=== PATIENT | female | born 1965 | race Caucasian/White ===

== ENCOUNTER 2018-01-29 11:36 | Inpatient (IN) | payer MEDICAID, OTHER ==
[~2018-01-29] VITALS: Ht 157.5 cm; Wt 75.4 kg
[2018-01-29] MEDS ORDERED: ADV100 IH (13:36)
[2018-01-29] MEDS ORDERED: VENL-193 PO (13:36)
[2018-01-29] MEDS ORDERED: ADDE10 PO (13:36)
[2018-01-29] MEDS ORDERED: ALBU8.5H8 IH (13:36)
[2018-01-29] MEDS ORDERED: VENL-68 PO (13:38)
[2018-01-29 13:50] LABS: EOSINOPHILS % (AUTO) 1.4 % (1.0-6.0); HEMATOCRIT 44.5 % (36-46); HEMOGLOBIN 15.2 g/dL (12.0-16.0); LYMPHOCYTES # (AUTO) 2.2 K/uL (1.0-4.8); LYMPHOCYTES % (AUTO) 22.4 % (22.0-44.0); MEAN CORPUSCULAR HEMOGLOBIN 30.1 pg (26.0-34.0); MEAN CORPUSCULAR HGB CONC 34.2 G/dL (31.0-37.0); MEAN CORPUSCULAR VOLUME 88 fL (80-100); MONOCYTES # (AUTO) 0.7 K/uL (0.1-1.0); MONOCYTES % (AUTO) 7.5 % (2.0-9.0); NEUTROPHILS # (AUTO) 6.7 K/uL (1.8-7.7); NEUTROPHILS % (AUTO) 67.7 % (40.0-70.0); PLATELET COUNT (AUTO) 358 K/uL (150-450); RED BLOOD CELL COUNT(AUTO) 5.07 MIL/uL (4.00-5.20); RED CELL DISTRIBUTION WIDTH 13.1 % (11.5-14.5)
[2018-01-29 14:02] LABS: ANION GAP 14 mmol/L (8-16); CALCIUM, TOTAL 9.5 mg/dL (8.8-10.5); CARBON DIOXIDE 24 mmol/L (22-29); CHLORIDE 103 mmol/L (98-107); CREATININE 0.62 mg/dL (0.60-1.30); GLOMERULAR FILTR. RATE CALC > 60 mL/min (>60); GLUCOSE,RANDOM 101 mg/dL (70-110); POTASSIUM 3.7 mmol/L (3.5-5.1); SODIUM SERUM 141 mmol/L (136-145); UREA NITROGEN, BLOOD 10 mg/dL (7-18)
[2018-01-29 14:07] LABS: ALANINE AMINOTRANSFERASE 57 U/L (12-78); ALBUMIN 3.9 g/dL (3.4-5.0); ALKALINE PHOSPHATASE 125 U/L (46-116); ASPARTATE AMINOTRANSFERASE 33 U/L (15-37); BILIRUBIN,TOTAL 0.8 mg/dL (0.1-1.0); TOTAL PROTEIN, SERUM 7.5 g/dL (6.4-8.2)
[2018-01-29] MEDS ORDERED: HALOPERIDOL 5 MG TABLET PO PRN (15:00)
[2018-01-29] MEDS ORDERED: ZOLPIDEM TARTRATE 10 MG TABLET PO PRN (15:00)
[2018-01-29 15:36] LABS: AMPHET/METH SCREEN,URINE POSITIVE (NEGATIVE); BARBITURATE SCREEN, URINE NEGATIVE (NEGATIVE); BENZODIAZEPINES SCREEN,URINE NEGATIVE (NEGATIVE); CANNABINOID SCREEN,URINE POSITIVE (NEGATIVE); COCAINE SCREEN,URINE NEGATIVE (NEGATIVE); METHADONE SCREEN, URINE NEGATIVE (NEGATIVE); OPIATE SCREEN,URINE NEGATIVE (NEGATIVE)
[2018-01-29 15:37] LABS: PHENCYCLIDINE SCREEN,URINE NEGATIVE (NEGATIVE)
[2018-01-29 18:58] VITALS: BP 151/75
[2018-01-29] MEDS ORDERED: CloNIDine HCL 0.1 MG TABLET PO PRN (20:45)
[2018-01-29] MEDS ORDERED: NICOTINE 14 MG/24 HOUR PATCH TD PRN (20:45)
[2018-01-29] MEDS ORDERED: IBUPROFEN 400 MG TABLET PO PRN (20:45)
[2018-01-29] MEDS ORDERED: MAGNESIUM HYDROXIDE SUSPENSION 30 ML UDCUP PO PRN (20:45)
[2018-01-29] MEDS ORDERED: ONDANSETRON HCL 4 MG TABLET PO PRN (20:45)
[2018-01-29] MEDS ORDERED: ACETAMINOPHEN 325 MG TABLET PO PRN (20:45)
[2018-01-29] MEDS ORDERED: LOPERAMIDE HCL 2 MG CAPSULE PO PRN (20:45)
[2018-01-29] MEDS ORDERED: GuaiFENesin/D-METHORPHAN [SUGAR-FREE] 200-20MG/10 ML SYRUP UDCUP PO PRN (20:45)
[2018-01-29] MEDS ORDERED: PETROLATUM,WHITE 71 GM JELLY TP PRN (20:45)
[2018-01-29] MEDS ORDERED: DOCUSATE SODIUM 100 MG CAPSULE PO PRN (20:45)
[2018-01-29] MEDS ORDERED: MAG HYDROX/AL HYDROX/SIMETH ES 30 ML SUSPENSION UDCUP PO PRN (20:45)
[2018-01-29] MEDS ORDERED: ALBUTEROL SULFATE HFA 90 MCG/PUFF 8 GM INHALER IH PRN (20:45)
[2018-01-30 09:57] VITALS: BP 140/86
[2018-01-30 10:40] VITALS: BP 140/86
[2018-01-30] MEDS: FLUTICASONE/VILANTEROL 100-25 MCG/INH INHALER [14] IH SCH (10:43)
[2018-01-30] MEDS: SUMAtriptan SUCCINATE 25 MG TABLET PO PRN (10:43)
[2018-01-30] MEDS: VENLAFAXINE HCL 150 MG ER CAPSULE PO SCH (13:51)
[2018-01-31 00:02] VITALS: BP 132/80
[2018-01-31] MEDS: VENLAFAXINE HCL 150 MG ER CAPSULE PO SCH (08:17)
[2018-01-31] MEDS: FLUTICASONE/VILANTEROL 100-25 MCG/INH INHALER [14] IH SCH (08:17)
[2018-01-31 10:45] VITALS: BP 126/78
[2018-01-31] MEDS: SUMAtriptan SUCCINATE 25 MG TABLET PO PRN (16:24)
[2018-01-31 19:55] VITALS: BP 140/94
[2018-02-01 07:37] LABS: ALANINE AMINOTRANSFERASE 47 U/L (12-78); ALBUMIN 3.5 g/dL (3.4-5.0); ALKALINE PHOSPHATASE 115 U/L (46-116); ANION GAP 5 mmol/L (8-16); ASPARTATE AMINOTRANSFERASE 20 U/L (15-37); BILIRUBIN,TOTAL 0.2 mg/dL (0.1-1.0); CALCIUM, TOTAL 8.6 mg/dL (8.8-10.5); CARBON DIOXIDE 32 mmol/L (22-29); CHLORIDE 107 mmol/L (98-107); CHOL/HDL RATIO 3.7 (3.9-5.7); CHOLESTEROL 164 mg/dL (131-200); CREATININE 0.66 mg/dL (0.60-1.30); FREE T4 (FREE THYROXINE) 0.72 ng/dL (0.76-1.46); GLOMERULAR FILTR. RATE CALC > 60 mL/min (>60); GLUCOSE,RANDOM 81 mg/dL (70-110); HDL CHOLESTEROL 44 mg/dL (40-60); LDL CHOL (CALC.) 100 mg/dL (0-130); POTASSIUM 4.6 mmol/L (3.5-5.1); SODIUM SERUM 144 mmol/L (136-145); TOTAL PROTEIN, SERUM 6.6 g/dL (6.4-8.2); TRIGLYCERIDES 101 mg/dL (15-150); UREA NITROGEN, BLOOD 11 mg/dL (7-18)
[2018-02-01 08:36] VITALS: BP 125/83
[2018-02-01] MEDS ORDERED: ARIPiprazole 5 MG TABLET PO SCH (09:00)
[2018-02-01] MEDS: FLUTICASONE/VILANTEROL 100-25 MCG/INH INHALER [14] IH SCH (09:28)
[2018-02-01] MEDS: VENLAFAXINE HCL 150 MG ER CAPSULE PO SCH (09:28)
[2018-02-01 09:33] VITALS: BP 125/83
[2018-02-01] MEDS: SUMAtriptan SUCCINATE 25 MG TABLET PO PRN (09:36)
[2018-02-01] MEDS: LORazepam 2 MG TABLET PO PRN (18:05)
[2018-02-01 19:11] VITALS: BP 132/89
[2018-02-02] MEDS ORDERED: ARIPiprazole 10 MG TABLET PO SCH (09:00)
[2018-02-02] MEDS: VENLAFAXINE HCL 150 MG ER CAPSULE PO SCH (09:43)
[2018-02-02] MEDS: FLUTICASONE/VILANTEROL 100-25 MCG/INH INHALER [14] IH SCH (09:43)
[2018-02-02 09:48] VITALS: BP 127/84
[2018-02-02] MEDS: LORazepam 2 MG TABLET PO PRN (16:35)
[2018-02-02 17:00] VITALS: BP 127/75
[2018-02-03 08:05] VITALS: BP 126/78
[2018-02-03] MEDS: ARIPiprazole 10 MG TABLET PO SCH (09:34)
[2018-02-03] MEDS: FLUTICASONE/VILANTEROL 100-25 MCG/INH INHALER [14] IH SCH (09:34)
[2018-02-03] MEDS: VENLAFAXINE HCL 150 MG ER CAPSULE PO SCH (09:34)
[2018-02-03 16:00] VITALS: BP 106/68
[2018-02-03] MEDS: LORazepam 2 MG TABLET PO PRN (20:12)
[2018-02-04 08:21] VITALS: BP 118/79
[2018-02-04] MEDS: FLUTICASONE/VILANTEROL 100-25 MCG/INH INHALER [14] IH SCH (09:17)
[2018-02-04] MEDS: VENLAFAXINE HCL 150 MG ER CAPSULE PO SCH (09:17)
[2018-02-04] MEDS: ARIPiprazole 10 MG TABLET PO SCH (09:18)
[2018-02-04 20:10] VITALS: BP 121/82
[2018-02-05] MEDS: VENLAFAXINE HCL 150 MG ER CAPSULE PO SCH (09:03)
[2018-02-05] MEDS: ARIPiprazole 10 MG TABLET PO SCH (09:03)
[2018-02-05] MEDS: FLUTICASONE/VILANTEROL 100-25 MCG/INH INHALER [14] IH SCH (09:03)
[2018-02-05 09:20] VITALS: BP 122/74
[2018-02-05] MEDS ORDERED: ARIP10TA8 PO (11:55)
== END 2018-02-05 13:15 | disposition home or self-care (01) | DRG 753 ==
LOC: EDUNIT# 11:36 → EMS 11:37 → 3EI 16:31
PROVIDERS: ADMIT Psychiatry & Neurology Psychiatry; ATTEND Psychiatry & Neurology Psychiatry
DX: F31.60 Bipolar disorder, current episode mixed, unspecified (principal); R45.851 Suicidal ideations; F12.90 Cannabis use, unspecified, uncomplicated; F41.9 Anxiety disorder, unspecified; F90.9 Attention-deficit hyperactivity disorder, unspecified type; J45.909 Unspecified asthma, uncomplicated; Z91.5 Personal history of self-harm; F19.10 Other psychoactive substance abuse, uncomplicated; Z71.51 Drug abuse counseling and surveillance of drug abuser
CPT/HCPCS: 84439; 84443; G0480

== ENCOUNTER 2018-10-18 10:52 | Inpatient (IN) | payer MEDICAID ==
[~2018-10-18] VITALS: Ht 157.5 cm; Wt 70.8 kg
[~2018-10-18 10:52] MED LIST: ADV100 IH; ARIP10TA8 PO; VENL-68 PO
[2018-10-18 11:32] LABS: BASOPHILS % (AUTO) 0.7 % (0.0-2.0); EOSINOPHILS % (AUTO) 3.4 % (1.0-6.0); HEMATOCRIT 44.6 % (36-46); HEMOGLOBIN 14.4 g/dL (12.0-16.0); LYMPHOCYTES # (AUTO) 3.5 K/uL (1.0-4.8); LYMPHOCYTES % (AUTO) 30.4 % (22.0-44.0); MEAN CORPUSCULAR HEMOGLOBIN 29.8 pg (26.0-34.0); MEAN CORPUSCULAR HGB CONC 32.4 G/dL (31.0-37.0); MEAN CORPUSCULAR VOLUME 92 fL (80-100); NEUTROPHILS # (AUTO) 6.5 K/uL (1.8-7.7); NEUTROPHILS % (AUTO) 56.5 % (40.0-70.0); RED BLOOD CELL COUNT(AUTO) 4.85 MIL/uL (4.00-5.20); RED CELL DISTRIBUTION WIDTH 13.5 % (11.5-14.5)
[2018-10-18 11:33] LABS: ANION GAP 9 mmol/L (8-16); CARBON DIOXIDE 24 mmol/L (22-29); CHLORIDE 108 mmol/L (98-107); CREATININE 0.63 mg/dL (0.60-1.30); GLOMERULAR FILTR. RATE CALC > 60 mL/min (>60); GLUCOSE,RANDOM 118 mg/dL (70-110); SODIUM SERUM 141 mmol/L (136-145); UREA NITROGEN, BLOOD 10 mg/dL (7-18)
[2018-10-18 11:39] LABS: ALANINE AMINOTRANSFERASE 22 U/L (12-78); ALBUMIN 3.9 g/dL (3.4-5.0); ALKALINE PHOSPHATASE 92 U/L (46-116); ASPARTATE AMINOTRANSFERASE 23 U/L (15-37); BILIRUBIN,TOTAL 0.5 mg/dL (0.1-1.0); TOTAL PROTEIN, SERUM 6.7 g/dL (6.4-8.2)
[2018-10-18 11:54] LABS: PLATELET COUNT (AUTO) 370 K/uL (150-450)
[2018-10-18] MEDS ORDERED: HALOPERIDOL 5 MG TABLET PO PRN (12:45)
[2018-10-18] MEDS ORDERED: LORazepam 2 MG TABLET PO PRN (12:45)
[2018-10-18] MEDS ORDERED: ZOLPIDEM TARTRATE 10 MG TABLET PO PRN (12:45)
[2018-10-18 18:37] VITALS: BP 154/108
[2018-10-18] MEDS ORDERED: DOCUSATE SODIUM 100 MG CAPSULE PO PRN (18:45)
[2018-10-18] MEDS ORDERED: PETROLATUM,WHITE 28 GM JELLY TP PRN (18:45)
[2018-10-18] MEDS ORDERED: LOPERAMIDE HCL 2 MG CAPSULE PO PRN (18:45)
[2018-10-18] MEDS ORDERED: MAG HYDROX/AL HYDROX/SIMETH ES 30 ML SUSPENSION UDCUP PO PRN (18:45)
[2018-10-18] MEDS ORDERED: GuaiFENesin/D-METHORPHAN [SUGAR-FREE] 200-20MG/10 ML SYRUP UDCUP PO PRN (18:45)
[2018-10-18] MEDS ORDERED: CloNIDine HCL 0.1 MG TABLET PO PRN (18:45)
[2018-10-18] MEDS ORDERED: NICOTINE 14 MG/24 HOUR PATCH TD PRN (18:45)
[2018-10-18] MEDS ORDERED: ONDANSETRON HCL 4 MG TABLET PO PRN (18:45)
[2018-10-18] MEDS ORDERED: IBUPROFEN 400 MG TABLET PO PRN (18:45)
[2018-10-18] MEDS ORDERED: MAGNESIUM HYDROXIDE SUSPENSION 30 ML UDCUP PO PRN (18:45)
[2018-10-18] MEDS ORDERED: ALBUTEROL SULFATE HFA 90 MCG/PUFF 8 GM INHALER IH PRN (18:45)
[2018-10-18] MEDS ORDERED: ACETAMINOPHEN 325 MG TABLET PO PRN (18:45)
[2018-10-18] MEDS: AmLODIPine BESYLATE 5 MG TABLET PO SCH (18:55)
[2018-10-18 19:55] VITALS: BP 102/60
[2018-10-19 08:19] VITALS: BP 121/69
[2018-10-19] MEDS: FLUTICASONE/VILANTEROL 100-25 MCG/INH INHALER [14] IH SCH (08:34)
[2018-10-19] MEDS: AmLODIPine BESYLATE 5 MG TABLET PO SCH (08:34)
[2018-10-19 09:24] LABS: CHOL/HDL RATIO 3.6 (3.9-5.7); THYROID STIMULATING HORMONE 1.77 uIU/mL (0.36-3.74)
[2018-10-19] MEDS: VENLAFAXINE HCL 150 MG ER CAPSULE PO SCH (12:08)
[2018-10-19] MEDS: ARIPiprazole 10 MG TABLET PO SCH (12:08)
[2018-10-19 16:02] VITALS: BP 100/54
[2018-10-20 08:33] VITALS: BP 129/86
[2018-10-20] MEDS: FLUTICASONE/VILANTEROL 100-25 MCG/INH INHALER [14] IH SCH (08:52)
[2018-10-20] MEDS: AmLODIPine BESYLATE 5 MG TABLET PO SCH (08:53)
[2018-10-20] MEDS: VENLAFAXINE HCL 150 MG ER CAPSULE PO SCH (08:53)
[2018-10-20] MEDS: ARIPiprazole 10 MG TABLET PO SCH (08:53)
[2018-10-20 16:07] VITALS: BP 119/76
[2018-10-21 08:11] LABS: APPEARANCE,URINE CLOUDY (CLEAR); BILIRUBIN,URINE NEGATIVE (NEGATIVE); GLUCOSE, URINE (UA) NEGATIVE (NEGATIVE); KETONES,URINE NEGATIVE (NEGATIVE); LEUKOCYTE ESTERASE ,URINE LARGE (NEGATIVE); NITRATE,URINE NEGATIVE (NEGATIVE); OCCULT BLOOD,URINE TRACE (NEGATIVE); PH,URINE 6.5 (5.0-8.0); PROTEIN,URINE NEGATIVE (NEGATIVE); UROBILINOGEN,URINE 0.2 mg/dL (<=1.0)
[2018-10-21 08:23] VITALS: BP 121/60
[2018-10-21 08:43] LABS: BACTERIA,URINE Few /HPF (None Seen); RBC,URINE 0-2 /HPF (0-2); SQUAMOUS EPITHELIAL CELL,UR Moderate /LPF (None Seen)
[2018-10-21 08:51] LABS: AMPHET/METH SCREEN,URINE POSITIVE (NEGATIVE); BARBITURATE SCREEN, URINE NEGATIVE (NEGATIVE); BENZODIAZEPINES SCREEN,URINE NEGATIVE (NEGATIVE); CANNABINOID SCREEN,URINE POSITIVE (NEGATIVE); COCAINE SCREEN,URINE NEGATIVE (NEGATIVE); METHADONE SCREEN, URINE NEGATIVE (NEGATIVE); OPIATE SCREEN,URINE NEGATIVE (NEGATIVE)
[2018-10-21 08:54] LABS: PHENCYCLIDINE SCREEN,URINE NEGATIVE (NEGATIVE)
[2018-10-21] MEDS: AmLODIPine BESYLATE 5 MG TABLET PO SCH (10:00)
[2018-10-21] MEDS: VENLAFAXINE HCL 150 MG ER CAPSULE PO SCH (10:00)
[2018-10-21] MEDS: ARIPiprazole 10 MG TABLET PO SCH (10:00)
[2018-10-21] MEDS: FLUTICASONE/VILANTEROL 100-25 MCG/INH INHALER [14] IH SCH (10:01)
[2018-10-21 16:07] VITALS: BP 119/77
[2018-10-22 05:42] VITALS: BP 110/68
[2018-10-22 08:16] VITALS: BP 105/53
[2018-10-22 08:50] VITALS: BP 127/94
[2018-10-22] MEDS: ARIPiprazole 10 MG TABLET PO SCH (08:51)
[2018-10-22] MEDS: FLUTICASONE/VILANTEROL 100-25 MCG/INH INHALER [14] IH SCH (08:51)
[2018-10-22] MEDS: VENLAFAXINE HCL 150 MG ER CAPSULE PO SCH (08:51)
[2018-10-22] MEDS: AmLODIPine BESYLATE 5 MG TABLET PO SCH (08:55)
[2018-10-22 16:14] VITALS: BP 126/70
[2018-10-23 07:08] VITALS: BP 118/62
[2018-10-23 08:23] VITALS: BP 124/74
[2018-10-23] MEDS: ARIPiprazole 10 MG TABLET PO SCH (08:49)
[2018-10-23] MEDS: FLUTICASONE/VILANTEROL 100-25 MCG/INH INHALER [14] IH SCH (08:49)
[2018-10-23] MEDS: VENLAFAXINE HCL 150 MG ER CAPSULE PO SCH (08:49)
[2018-10-23] MEDS: AmLODIPine BESYLATE 5 MG TABLET PO SCH (08:49)
[2018-10-23 16:02] VITALS: BP 138/91
[2018-10-24 06:04] VITALS: BP 126/80
[2018-10-24 08:12] VITALS: BP 121/66
[2018-10-24] MEDS: FLUTICASONE/VILANTEROL 100-25 MCG/INH INHALER [14] IH SCH (08:29)
[2018-10-24] MEDS: AmLODIPine BESYLATE 5 MG TABLET PO SCH (08:30)
[2018-10-24] MEDS: VENLAFAXINE HCL 150 MG ER CAPSULE PO SCH (08:30)
[2018-10-24] MEDS: ARIPiprazole 10 MG TABLET PO SCH (08:30)
[2018-10-24 16:10] VITALS: BP 101/63
[2018-10-25 08:12] VITALS: BP 126/76
[2018-10-25] MEDS: ARIPiprazole 10 MG TABLET PO SCH (08:32)
[2018-10-25] MEDS: FLUTICASONE/VILANTEROL 100-25 MCG/INH INHALER [14] IH SCH (08:32)
[2018-10-25] MEDS: AmLODIPine BESYLATE 5 MG TABLET PO SCH (08:32)
[2018-10-25] MEDS: VENLAFAXINE HCL 150 MG ER CAPSULE PO SCH (08:32)
[2018-10-25] MEDS ORDERED: MULTIVITAMINS WITH MINERALS, THERAPEUTIC TABLET PO SCH (09:00)
[2018-10-25 16:05] VITALS: BP 111/76
[2018-10-25] MEDS ORDERED: AMLO2.5T2 PO (18:16)
[2018-10-25] MEDS ORDERED: FLUT1AER IH (18:17)
== END 2018-10-25 19:04 | disposition home or self-care (01) | DRG 753 ==
LOC: EMS 10:53 → B3A 15:33
PROVIDERS: ADMIT Psychiatry & Neurology Psychiatry; ATTEND Psychiatry & Neurology Psychiatry
DX: F31.4 Bipolar disorder, current episode depressed, severe, without psychotic features (principal); D72.829 Elevated white blood cell count, unspecified; F12.90 Cannabis use, unspecified, uncomplicated; F90.9 Attention-deficit hyperactivity disorder, unspecified type; I10 Essential (primary) hypertension; J45.909 Unspecified asthma, uncomplicated; Z79.899 Other long term (current) drug therapy
CPT/HCPCS: 83036; 84443; 87086; G0480